=== PATIENT | female | born 1980 | race Caucasian/White ===

== ENCOUNTER → 2019-01-21 | Outpatient (CLI) | payer SELFPAY ==
[~2019-01-21] MED LIST: DOXY-233 PO; HOLD METFORMIN - RECEIVED CONTRAST 20 ML VIAL IV SCH; HYDR-690 PO; IOHEXOL 350 MG/ML 100 ML (OMNIPAQUE 350) VIAL IV ONE; METR500T PO; ONDN4T PO; SULF1TAB38 PO
--- NOTE | 2019-01-21 11:09 | Diagnostic Imaging Report ---
PROCEDURE: CT abdomen and pelvis with contrast. TECHNIQUE: Multiple contiguous axial images were obtained through the abdomen and pelvis after administration of intravenous contrast. Auto Exposure Controls were utilized during the CT exam to meet ALARA standards for radiation dose reduction. INDICATION: Lower abdominal pain and weight gain. No prior studies are available for comparison. FINDINGS: The lung bases are clear. There is a tiny low density in the left lobe of liver measuring 5 mm. This is too small to accurately characterize but may represent small cyst. Additional small lesion in the inferior right lobe is noted measuring 10 mm. This too likely represents a cyst. There appears to be large stones within the gallbladder. No biliary ductal dilatation is seen. The pancreas and spleen are unremarkable. No adrenal mass is identified. The kidneys are unremarkable. The aorta is non-aneurysmal. The small and large bowel loops are normal caliber. There is a cyst in the left adnexa measuring 3 cm, likely ovarian. The uterus appears to be surgically absent. No free fluid is identified. The bladder is unremarkable. IMPRESSION: 1. Cholelithiasis. Further evaluation with gallbladder ultrasound may be useful. 2. 3 cm left adnexal mass, likely ovarian. Pelvic sonography would be useful for better characterization. 3. Otherwise unremarkable CT of the abdomen and pelvis. Dictated by: Dictated on workstation # [id number]
== END ==
LOC: RAD 10:27
PROVIDERS: ATTEND Nurse Practitioner
DX: K80.20 Calculus of gallbladder without cholecystitis without obstruction (principal); N83.8 Other noninflammatory disorders of ovary, fallopian tube and broad ligament
CPT/HCPCS: 74177

== ENCOUNTER 2019-02-04 05:55 | Outpatient (CLI) | payer OTHER ==
[~2019-02-04] VITALS: Ht 152.4 cm; Wt 51.3 kg
[~2019-02-04 05:55] MED LIST changes: -HOLD METFORMIN - RECEIVED CONTRAST 20 ML VIAL IV SCH; -IOHEXOL 350 MG/ML 100 ML (OMNIPAQUE 350) VIAL IV ONE
[2019-02-04] MEDS ORDERED: SERT50TA2 PO (13:21)
[2019-02-04] MEDS ORDERED: ZOLP5TAB PO (13:21)
[2019-02-05] MEDS ORDERED: DOCU-143 PO (10:27)
[2019-02-05] MEDS ORDERED: ACHD5005 PO (10:27)
== END 2019-02-04 14:04 | disposition home or self-care (01) ==
LOC: PREOP 05:55
PROVIDERS: ATTEND Surgery
DX: Z01.818 Encounter for other preprocedural examination (principal)

== ENCOUNTER 2019-02-05 07:08 | Day surgery (SDC) | payer OTHER ==
[~2019-02-05] VITALS: Ht 152.4 cm; Wt 51.3 kg
[2019-02-05] VITALS (9 sets, daily range): BP systolic 94–100; BP diastolic 49–62
[~2019-02-05 07:08] MED LIST changes: +SERT50TA2 PO; +ZOLP5TAB PO
--- OUTSIDE RECORDS SUMMARY | 2019-02-05 07:12 | XMS REPORT ---
Author Author KARL GRIFFITH [facility] Address [address] [place], [place] [address] Care Team Providers Care Legal Document Specialist Name Role Phone KARL GRIFFITH PCP KARL GRIFFITH PreferredProvider Allergies and Adverse Reactions Name Reaction Notes No known allergies Plan of Treatment Not available. Medications Active Name Start Date Estimated Completion Date SIG Comments buspirone 5 mg oral tablet take 1 tablet by oral route As needed Zoloft 50 mg oral tablet 10/07/2017 take 2 tablets (100 mg) by oral route once daily Xanax 0.5 mg oral tablet 10/07/2017 11/06/2017 take 1 tablet (0.5 mg) by oral route 2 times per day for 30 days Name Start Date Expiration Date SIG Comments [place] 5-325 mg oral tablet 02/17/2017 take 1 tablet by oral route every 4- 6 hours as needed for pain Discontinued Name Start Date Discontinued Date SIG Comments citalopram 20 mg oral tablet 08/21/2017 10/08/2017 take 1 tablet (20 mg) by oral route once daily Problem List Description Status Onset Mild episode of recurrent major depressive disorder Active 10/08/2017 Stress at home Active 10/08/2017 Anxiety Active 10/08/2017 Vital Signs Date Time BP-Sys(mm[Hg] BP-Nora(mm[Hg]) HR(bpm) RR(rpm) Temp WT HT HC BMI BSA BMI Percentile O2 Sat(%) 10/06/2017 3:22:00 PM 96 mmHg 52 mmHg 86 bpm 16 rpm 98 F 127 lbs 61 in 24.00 kg/m2 1.57 m2 98 % 03/27/2017 10:36:00 AM 110 mmHg 80 mmHg 70 bpm 16 rpm 97.1 F 126 lbs 60 in 24.6074 kg/m 1.5555 m 97 % 02/24/2017 9:21:00 AM 102 mmHg 64 mmHg 82 bpm 18 rpm 98.4 F 126 lbs 60 in 24.61 kg/m2 1.56 m2 99 % 02/17/2017 4:02:00 PM 128 mmHg 74 mmHg 72 bpm 18 rpm 98 F 126 lbs 60 in 24.6074 kg/m 1.5555 m 99 % 02/13/2017 5:55:00 PM 100 mmHg 60 mmHg 88 bpm 97.9 F 125 lbs 60 in 24.41 kg/m2 1.55 m2 100 % 10/01/2016 11:26:00 AM 98 mmHg 60 mmHg 72 bpm 16 rpm 98.2 F 117 lbs 60 in 22.8498 kg/m 1.4989 m 100 % Social History Name Description Comments Tobacco Current every day smoker Alcohol Never Uses seatbelts History of Procedures Date Ordered Description Order Status 10/01/2016 12:00 AM PMRV Drug Screen Collection Returned 02/17/2017 12:00 AM Splint, prefabricated, wrist or ankle Reviewed 02/13/2017 12:00 AM X-RAY EXAM OF HAND Reviewed Results Summary Not available. History Of Immunizations Not available. History of Past Illness Name Date of Onset Comments Constipation Depression Mild episode of recurrent major depressive disorder 10/08/2017 Stress at home 10/08/2017 Anxiety 10/08/2017 Encounter for drug screening Oct 01 2016 1:05PM Encounter for routine adult health examination Oct 01 2016 11:26AM Left hand pain Feb 13 2017 6:00PM Finger pain, left Feb 17 2017 4:03PM Hand pain, left Feb 17 2017 4:03PM Acute Left hand pain Feb 24 2017 9:22AM Moderate Hand pain, left Unresponsive to treatment Mar 27 2017 10:36AM Mild episode of recurrent major depressive disorder Oct 06 2017 3:22PM Moderate Chronic Stress at home Oct 06 2017 3:22PM Moderate Chronic Anxiety Stable Oct 06 2017 3:22PM Payers Insurance Name Company Name Plan Name Plan Number Policy Number Policy Group Number Start Date [employer] [facility] [place] [id number] Sunday, 2013 [facility] PMRV PHYS/DS PMRV PHYS AND DS N/A History of Encounters Visit Date Visit Type Provider 10/06/2017 Office visit KARL ARANGO 03/27/2017 Office visit KARL ARANGO 02/24/2017 Office visit KARL ARANGO 02/17/2017 Office visit KARL ARANGO 02/13/2017 Office visit Radhika German APRN 10/01/2016 Office visit KARL ARANGO
--- OUTSIDE RECORDS SUMMARY | 2019-02-05 07:12 | XMS REPORT ---
Author Author KARL GRIFFITH [facility] Address [address] [place], [place] [address] Care Team Providers Care Offset Press Operator Helper Name Role Phone KARL GRIFFITH PCP KARL GRIFFITH PreferredProvider Allergies and Adverse Reactions Name Reaction Notes No known allergies Plan of Treatment Not available. Medications Active Name Start Date Estimated Completion Date SIG Comments buspirone 5 mg oral tablet take 1 tablet by oral route As needed Xanax 0.5 mg oral tablet 11/21/2017 05/20/2018 take 1 tablet (0.5 mg) by oral route 2 times per day for 30 days Ventolin HFA 90 mcg/actuation inhalation HFA aerosol inhaler 02/24/2018 inhale 1 - 2 puffs (90 - 180 mcg) by inhalation route every 6 hours as needed Name Start Date Expiration Date SIG Comments [place] 5-325 mg oral tablet 02/17/2017 take 1 tablet by oral route every 4- 6 hours as needed for pain Keflex 500 mg oral capsule 12/15/2017 take 1 capsule (500 mg) by oral route every 6 hours for 7 days Zithromax Z-Louie 250 mg oral tablet 02/24/2018 03/01/2018 take 2 tablets (500 mg) by oral route once daily for 1 day then 1 tablet (250 mg) by oral route once daily for 4 days Medrol (Louie) 4 mg oral tablets,dose pack 02/24/2018 03/01/2018 take as directed for 5 days Discontinued Name Start Date Discontinued Date SIG Comments citalopram 20 mg oral tablet 08/21/2017 10/08/2017 take 1 tablet (20 mg) by oral route once daily Zoloft 50 mg oral tablet 11/21/2017 03/09/2018 take 2 tablets (100 mg) by oral route once daily Problem List Description Status Onset Mild episode of recurrent major depressive disorder Active 10/08/2017 Stress at home Active 10/08/2017 Anxiety Active 10/08/2017 Vital Signs Date Time BP-Sys(mm[Hg] BP-Nora(mm[Hg]) HR(bpm) RR(rpm) Temp WT HT HC BMI BSA BMI Percentile O2 Sat(%) 05/19/2018 1:47:00 PM 112 mmHg 70 mmHg 70 bpm 16 rpm 97.4 F 124 lbs 60 in 24.2168 kg/m 1.5431 m 98 % 02/24/2018 3:23:00 PM 98 mmHg 52 mmHg 80 bpm 18 rpm 99.3 F 127 lbs 60 in 24.80 kg/m2 1.56 m2 99 % 10/06/2017 3:22:00 PM 96 mmHg 52 mmHg 86 bpm 16 rpm 98 F 127 lbs 61 in 23.9962 kg/m 1.5746 m 98 % 03/27/2017 10:36:00 AM 110 mmHg 80 mmHg 70 bpm 16 rpm 97.1 F 126 lbs 60 in 24.61 kg/m2 1.56 m2 97 % 02/24/2017 9:21:00 AM 102 mmHg 64 mmHg 82 bpm 18 rpm 98.4 F 126 lbs 60 in 24.6074 kg/m 1.5555 m 99 % 02/17/2017 4:02:00 PM 128 mmHg 74 mmHg 72 bpm 18 rpm 98 F 126 lbs 60 in 24.61 kg/m2 1.56 m2 99 % 02/13/2017 5:55:00 PM 100 mmHg 60 mmHg 88 bpm 97.9 F 125 lbs 60 in 24.4121 kg/m 1.5493 m 100 % 10/01/2016 11:26:00 AM 98 mmHg 60 mmHg 72 bpm 16 rpm 98.2 F 117 lbs 60 in 22.8498 kg/m 1.50 m2 100 % Social History Name Description Comments [...] Chronic Anxiety Stable Oct 06 2017 3:22PM Cough Feb 24 2018 3:24PM Bronchitis, Acute Feb 24 2018 3:24PM Chest congestion Feb 24 2018 3:24PM Smoker Feb 24 2018 3:24PM Gallstones May 19 2018 1:55PM Renal calculus or stone May 19 2018 1:55PM Encounter for examination following treatment at hospital May 19 2018 1:55PM Payers Insurance Name Company Name Plan Name Plan Number Policy Number Policy Group Number Start Date [employer]BS [facility] [id number] Sunday, 2013 [facility] PMRV PHYS/DS PMRV PHYS AND DS N/A History of Encounters Visit Date Visit Type Provider 05/19/2018 Office visit KARL ARANGO 02/24/2018 Office visit KARL ARANGO 10/06/2017 Office visit KARL ARANGO 03/27/2017 Office visit KARL ARANGO 02/24/2017 Office visit KARL ARANGO 02/17/2017 Office visit KARL ARANGO 02/13/2017 Office visit Radhika German APRN 10/01/2016 Office visit KARL ARANGO
--- OUTSIDE RECORDS SUMMARY | 2019-02-05 07:12 | XMS REPORT ---
Author KARL Miguel [facility] Address [address] [place], [place] [address] Care Team Providers Care Glaze Grinder Name Role Phone KARL GRIFFITH PCP Unavailable KARL GRIFFITH PreferredProvider Unavailable Allergies and Adverse Reactions Name Reaction Notes No known allergies Plan of Treatment Not available. Medications Active Name Start Date Estimated Completion Date SIG Comments Xanax 0.25 mg oral tablet buspirone 5 mg oral tablet take 1 tablet by oral route As needed [place] 5-325 mg oral tablet 02/17/2017 take 1 tablet by oral route every 4- 6 hours as needed for pain citalopram 20 mg oral tablet 02/24/2017 take 1 tablet (20 mg) by oral route once daily Problem List Not available. Vital Signs Date Time BP-Sys(mm[Hg] BP-Nora(mm[Hg]) HR(bpm) RR(rpm) Temp WT HT HC BMI BSA BMI Percentile O2 Sat(%) 02/24/2017 9:21:00 AM 102 mmHg 64 mmHg [...] 12:00 AM PMRV Drug Screen Collection Returned 02/13/2017 12:00 AM X-RAY EXAM OF HAND Reviewed 02/17/2017 12:00 AM Splint, prefabricated, wrist or ankle Reviewed Results Summary Not available. History Of Immunizations Not available. History of Past Illness Name Date of Onset Comments Constipation Depression Encounter for drug screening Oct 01 2016 1:05PM Encounter for routine adult health examination Oct 01 2016 11:26AM Left hand pain Feb 13 2017 6:00PM Finger pain, left Feb 17 2017 4:03PM Hand pain, left Feb 17 2017 4:03PM Acute Left hand pain Feb 24 2017 9:22AM Payers Insurance Name Company Name Plan Name Plan Number Policy Number Policy Group Number Start Date [facility] [id number] Sunday, 2013 [facility] PMRV PHYS/DS PMRV PHYS AND DS N/A History of Encounters Visit Date Visit Type Provider 02/24/2017 Office visit KARL ARANGO 02/17/2017 Office visit KARL ARANGO 02/13/2017 Office visit Radhika German APRN 10/01/2016 Office visit KARL ARANGO
--- OUTSIDE RECORDS SUMMARY | 2019-02-05 07:12 | XMS REPORT ---
Author Author KARL GRIFFITH [facility] Address [address] [place], [place] [address] Care Team Providers Care Tariff Compiling Clerk Name Role Phone KARL GRIFFITH PCP KARL GRIFFITH PreferredProvider Allergies and Adverse Reactions Name Reaction Notes No known allergies Plan of Treatment Not available. Medications Active Name Start Date Estimated Completion Date SIG Comments buspirone 5 mg oral tablet take 1 tablet by oral route As needed Ventolin HFA 90 mcg/actuation inhalation HFA aerosol inhaler 02/24/2018 inhale 1 - 2 puffs (90 - 180 mcg) by inhalation route every 6 hours as needed Xanax 0.5 mg oral tablet 07/09/2018 01/05/2019 take 1 tablet (0.5 mg) by oral route 2 times per day for 30 days Name Start Date Expiration Date SIG Comments [place] 5-325 mg oral tablet 02/17/2017 take 1 [...] route once daily for 4 days Medrol (Louei) 4 mg oral tablets,dose pack 02/24/2018 03/01/2018 [...] HC BMI BSA BMI Percentile O2 Sat(%) 09/15/2018 9:28:00 AM 102 mmHg 60 mmHg 90 bpm 18 rpm 98.4 F 128 lbs 60 in 24.998 kg/m 1.5678 m 98 % 05/19/2018 1:47:00 PM 112 mmHg 70 mmHg 70 bpm 16 rpm 97.4 F 124 lbs 60 in 24.22 kg/m2 1.54 m2 98 % 02/24/2018 3:23:00 PM 98 mmHg 52 mmHg 80 bpm 18 rpm 99.3 F 127 lbs 60 in 24.8027 kg/m 1.5616 m 99 % 10/06/2017 3:22:00 PM 96 mmHg [...] treatment at hospital May 19 2018 1:55PM Insomnia, unspecified type Sep 15 2018 9:29AM Moderate episode of recurrent major depressive disorder Sep 15 2018 9:29AM Anxiety Sep 15 2018 9:29AM Payers Insurance Name Company Name Plan Name Plan Number Policy Number Policy Group Number Start Date [facility] [id number] Sunday, 2013 [facility] PMRV PHYS/DS PMRV PHYS AND DS N/A History of Encounters Visit Date Visit Type Provider 09/15/2018 Office visit KARL ARANGO 05/19/2018 Office visit KARL ARANGO 02/24/2018 Office visit KARL ARANGO 10/06/2017 Office visit KARL ARANGO 03/27/2017 Office visit KARL ARANGO 02/24/2017 Office visit KARL ARANGO 02/17/2017 Office visit KARL ARANGO 02/13/2017 Office visit Radhika German APRN 10/01/2016 Office visit KARL ARANGO
--- OUTSIDE RECORDS SUMMARY | 2019-02-05 07:12 | XMS REPORT ---
Author KARL Miguel [facility] Address [address] [place], [place] [address] Care Team Providers Care Marketing Assistant Name Role Phone KARL GRIFFITH PCP Unavailable KARL GRIFFITH PreferredProvider Unavailable Allergies and Adverse Reactions Name Reaction Notes No known allergies Plan of Treatment Not available. Medications Active Name Start Date Estimated Completion Date SIG Comments citalopram oral Xanax 0.25 mg oral tablet buspirone 5 mg oral tablet take 1 tablet by oral route As needed [place] 5-325 mg oral tablet 02/17/2017 take 1 tablet by oral route every 4- 6 hours as needed for pain Problem List Not available. Vital Signs Date Time BP-Sys(mm[Hg] BP-Nora(mm[Hg]) HR(bpm) RR(rpm) Temp WT HT HC BMI BSA BMI Percentile O2 Sat(%) 02/17/2017 4:02:00 PM 128 mmHg 74 mmHg 72 bpm 18 rpm 98 F 126 lbs 60 in 24.61 kg/m2 1.56 m2 99 % 02/13/2017 5:55:00 PM 100 mmHg 60 mmHg 88 bpm 97.9 F 125 lbs 60 in 24.4121 kg/m 1.5493 m 100 % 10/01/2016 11:26:00 AM 98 mmHg 60 mmHg 72 bpm 16 rpm 98.2 F 117 lbs 60 in 22.85 kg/m2 1.50 m2 100 % Social History Name [...] Feb 13 2017 6:00PM Finger pain, left Apr 17 2017 4:03PM Hand pain, left Feb 17 2017 4:03PM Payers Insurance Name Company Name Plan Name Plan Number Policy Number Policy Group Number Start Date [employer] [facility] [place] [id number] Sunday, 2013 [facility] PMRV PHYS/DS PMRV PHYS AND DS N/A History of Encounters Visit Date Visit Type Provider 02/17/2017 Office visit KARL ARANGO 02/13/2017 Office visit Radhika German APRN 10/01/2016 Office visit KARL ARANGO
--- OUTSIDE RECORDS SUMMARY | 2019-02-05 07:12 | XMS REPORT ---
Author KARL Miguel [facility] Address [address] [place], [place] [address] Care Team Providers Care Link Wire Fabric Machine Operator Name Role Phone KARL GRIFFITH PCP Unavailable KARL GRIFFITH PreferredProvider Unavailable Allergies and Adverse Reactions Name Reaction Notes No known allergies Plan of Treatment Not available. Medications Active Name Start Date Estimated Completion Date SIG Comments Xanax 0.25 mg oral tablet buspirone 5 mg oral tablet take 1 tablet by oral route As needed [place] 5-325 mg oral tablet 02/17/2017 take 1 tablet by oral route every 4- 6 hours as needed for pain citalopram 20 mg oral tablet 03/05/2017 take 1 tablet (20 mg) by oral route once daily Problem List Not available. Vital Signs Date Time BP-Sys(mm[Hg] BP-Nora(mm[Hg]) HR(bpm) RR(rpm) Temp WT HT HC BMI BSA BMI Percentile O2 Sat(%) 03/27/2017 10:36:00 AM 110 mmHg 80 mmHg [...] Unresponsive to treatment Mar 27 2017 10:36AM Payers Insurance Name Company Name Plan Name Plan Number Policy Number Policy Group Number Start Date [facility]BS [facility] [id number] Sunday, November 03, 2013 [facility] PMRV PHYS/DS PMRV PHYS AND DS N/A History of Encounters Visit Date Visit Type Provider 03/27/2017 Office visit KARL ARANGO 02/24/2017 Office visit KARL ARANGO 02/17/2017 Office visit KARL ARANGO 02/13/2017 Office visit Radhika German APRN 10/01/2016 Office visit KARL ARANGO
--- OUTSIDE RECORDS SUMMARY | 2019-02-05 07:13 | XMS REPORT ---
Author Author KARL GRIFFITH [facility] Address [address] [place], [place] [address] Care Team Providers Care Gang Head Saw Operator Name Role Phone KARL GRIFFITH PCP KARL [...] Name Start Date Expiration Date SIG Comments [place] 5-325 mg oral tablet 02/17/2017 take 1 [...] HC BMI BSA BMI Percentile O2 Sat(%) 02/24/2018 3:23:00 PM 98 mmHg 52 mmHg [...] 2018 3:24PM Smoker Feb 24 2018 3:24PM Payers Insurance Name Company Name Plan Name Plan Number Policy Number Policy Group Number Start Date [facility] PMRV PHYS/DS PMRV PHYS AND DS N/A BCBS [employer] [facility] [id number] Sunday, 2013 History of Encounters Visit Date Visit Type Provider 02/24/2018 Office visit KARL ARANGO 10/06/2017 Office visit KARL ARANGO 03/27/2017 Office visit KARL ARANGO 02/24/2017 Office visit KARL ARANGO 02/17/2017 Office visit KARL ARANGO 02/13/2017 Office visit Radhika German APRN 10/01/2016 Office visit KARL ARANGO
--- OUTSIDE RECORDS SUMMARY | 2019-02-05 07:13 | XMS REPORT ---
Author Author GUILLAUME CAREY Organization [facility] Address [address] [place] [address] Care Team Providers Care Bead Picker Name Role Phone GUILLAUME CAREY Unavailable PROBLEMS Type Condition ICD9-CM Code [id number] Code Onset Dates Condition Status SNOMED Code Problem Migraine, unspecified without mention of intractable migraine without mention of status migrainosus 346.90 Active 15911472 Problem Cellulitis and abscess of unspecified site 682.9 Active 723815995 Problem Encounter for change or removal of nonsurgical wound dressing V58.30 Active 978053500 ALLERGIES No Information ENCOUNTERS Encounter Location Date Diagnosis [facility] [address] [address] Feb, [facility] [address] [place] [address] Jul, [address] [address] Apr, Tobacco use Z72.0 and Tobacco abuse counseling Z71.[address] [address] Jun, Anxiety 300.00 and Sinusitis [address] [address] May, Anxiety 300.00 and Nicotine addiction 305.[address] [address] Apr, Anxiety 300.00 ; Insomnia 780.52 ; Nicotine addiction 305.1 and External auditory canal pruritus 698.[address] [address] March, External auditory canal pruritus 698.9 [facility] [address] [facility] [id number] [address] Feb, [facility] [id number] [address] Feb, [facility] [id number] [address] Jul, [facility] [id number] [address] Jul, [facility] [address] [id number] [address] Apr, [facility] [id number] [address] Apr, [facility] [id number] [address] Apr, IMMUNIZATIONS No Known Immunizations SOCIAL HISTORY Never Assessed REASON FOR VISIT Triage [facility] PLAN OF CARE VITAL SIGNS Height 60 in 2018-02-23 Weight 123.0 lbs 2018-02-23 Temperature 98.7 degrees Fahrenheit 2018-02-23 Heart Rate 84 bpm 2018-02-23 Respiratory Rate 20 2018-02-23 BMI 24.02 kg/m2 2018-02-23 Blood pressure systolic 100 mmHg 2018-02-23 Blood pressure diastolic 70 mmHg 2018-02-23 MEDICATIONS Unknown Medications RESULTS No Results PROCEDURES No Known procedures INSTRUCTIONS MEDICATIONS ADMINISTERED No Known Medications MEDICAL (GENERAL) HISTORY Type Description Date Medical History anxiety Surgical History hysterectomy Surgical History tubal ligation Surgical History dilatation and curettage Hospitalization History no other hospitalizations except surgeries
--- OUTSIDE RECORDS SUMMARY | 2019-02-05 07:13 | XMS REPORT ---
Author KARL Miguel [facility] Address [address] [place], [place] [address] Care Team Providers Care Building Construction Superintendent Name Role Phone KARL GRIFFITH PCP Unavailable Allergies and Adverse Reactions Name Reaction Notes No known allergies Plan of Treatment Not available. Medications Active Name Start Date Estimated Completion Date SIG Comments citalopram oral Xanax 0.25 mg oral tablet Problem List Not available. Vital Signs Date Time BP-Sys(mm[Hg] BP-Nora(mm[Hg]) HR(bpm) RR(rpm) Temp WT HT HC BMI BSA BMI Percentile O2 Sat(%) 10/01/2016 11:26:00 AM 98 mmHg 60 mmHg 72 bpm 16 rpm 98.2 F 117 lbs 60 in 22.85 kg/m2 1.50 m2 100 % Social History Name Description Comments Tobacco Current every day smoker Alcohol Never Uses seatbelts History of Procedures Not available. Results Summary Not available. History Of Immunizations Not available. History of Past Illness Name Date of Onset Comments Constipation Depression Encounter for drug screening Oct 01 2016 1:05PM Payers Insurance Name Company Name Plan Name Plan Number Policy Number Policy Group Number Start Date [facility] PMRV PHYS/DS PMRV PHYS AND DS N/A History of Encounters Visit Date Visit Type Provider 10/01/2016 Office visit KARL ARANGO
--- OUTSIDE RECORDS SUMMARY | 2019-02-05 07:13 | XMS REPORT ---
Author KARL Miguel [facility] Address [address] [place], [place] [address] Care Team Providers Care Expanded Function Dental Assistant Name Role Phone KARL GRIFFITH PCP [...] 12:00 AM PMRV Drug Screen Collection Returned Results Summary Not available. History Of Immunizations Not available. History of Past Illness Name Date of Onset Comments Constipation Depression Encounter for drug screening Oct 01 2016 1:05PM Encounter for routine adult health examination Oct 01 2016 11:26AM Payers Insurance Name Company Name Plan Name Plan Number Policy Number Policy Group Number Start Date [facility] PMRV PHYS/DS PMRV PHYS AND DS N/A History of Encounters Visit Date Visit Type Provider 10/01/2016 Office visit KARL ARANGO
--- OUTSIDE RECORDS SUMMARY | 2019-02-05 07:13 | XMS REPORT | Continuity of Care Document ---
Author Author [facility] Address Unknown Phone Unavailable Allergies There is no data. Medications There is no data. Problems Date Dx Coded Attending Type Code Diagnosis Diagnosed By 01/03/2009 NEELAM LOMELI MD 616.10 BACTERIAL VAGINOSIS 01/03/2009 NEELAM LOMELI MD 625.0 FEMALE DYSPAREUNIA DUE TO A PHYSICAL CONDITION 01/03/2009 NEELAM LOMELI MD V72.31 Pelvic Exam (Internal) 01/03/2009 KAYLAH TRAVIS DO 616.10 BACTERIAL VAGINOSIS 01/03/2009 KAYLAH TRAVIS DO 625.0 FEMALE DYSPAREUNIA DUE TO A PHYSICAL CONDITION 01/03/2009 KAYLAH TRAVIS DO V72.31 Pelvic Exam (Internal) 04/28/2012 NEELAM LOMELI MD 682.9 CELLULITIS AND ABSCESS OF UNSPECIFIED SITES 04/28/2012 NEELAM LOMELI MD V58.30 ENCOUNTER FOR CHANGE OR REMOVAL OF NONSURGICAL WOUND DRESSING 04/28/2012 KAYLAH TRAVIS DO 682.9 CELLULITIS AND ABSCESS OF UNSPECIFIED SITES 04/28/2012 KAYLAH TRAVIS DO V58.30 ENCOUNTER FOR CHANGE OR REMOVAL OF NONSURGICAL WOUND DRESSING 07/28/2014 NEELAM LOMELI MD 346.90 MIGRAINE UNSPECIFIED WITHOUT MENTION OF INTRACTABLE MIGRAINE WITHOUT MENTION OF STATUS MIGRAINOSUS 07/28/2014 KAYLAH TRAVIS DO 346.90 MIGRAINE UNSPECIFIED WITHOUT MENTION OF INTRACTABLE MIGRAINE WITHOUT MENTION OF STATUS MIGRAINOSUS 02/17/2015 KAYLAH TRAVIS DO 780.52 INSOMNIA UNSPECIFIED 02/17/2015 KAYLAH TRAVIS DO V58.69 HIGH RISK MEDICATION Procedures There is no data. Results There is no data. Encounters ACCT No. Visit Date/Time Discharge Status Pt. Type Provider Facility Loc./Unit Complaint [id number] 09/15/2018 10:22:28 09/15/2018 23:59:59 [facility] Outpatient KARL GRIFFITH [id number] 05/19/2018 14:53:31 05/19/2018 23:59:59 [facility] Outpatient KARL GRIFFITH [id number] 02/24/2018 15:41:12 02/24/2018 23:59:59 [facility] Outpatient KARL GRIFFITH [id number] 10/06/2017 15:32:48 10/06/2017 23:59:59 [facility] Outpatient KARL GRIFFITH [id number] 03/27/2017 10:39:38 03/27/2017 23:59:59 [facility] Outpatient KARL GRIFFITH [id number] 02/24/2017 09:54:29 02/24/2017 23:59:59 [facility] Outpatient KARL GRIFFITH [id number] 02/17/2017 15:39:29 02/17/2017 23:59:59 [facility] Outpatient KARL GRIFFITH [id number] 02/17/2017 15:35:26 02/17/2017 23:59:59 [facility] Outpatient Radhika German [id number] 10/01/2016 12:03:49 10/01/2016 23:59:59 [facility] Outpatient KARL GRIFFITH [id number] 01/27/2019 14:45:00 01/27/2019 23:59:59 [facility] Outpatient GUILLAUME CAREY APRN [facility] [id number] 02/17/2015 09:37:00 02/17/2015 23:59:59 CLS Outpatient KAYLAH TRAVIS DO [id number] 07/28/2014 15:57:00 07/28/2014 23:59:59 [facility] Outpatient NEELAM LOMELI MD
--- OUTSIDE RECORDS SUMMARY | 2019-02-05 07:13 | XMS REPORT ---
Author Author GUILLAUME CAREY Organization [employer] Address Unknown Phone Unavailable Care Team Providers Care Antique Refinisher Name Role Phone GUILLAUME CAREY CP Unavailable Allergies, Adverse Reactions, Alerts Substance Reaction Event Type N.K.D.A. Info Not Available Non Drug Allergy Problems Problem Type Condition ICD-9 Code Onset Dates Condition Status Problem Encounter for change or removal of nonsurgical wound dressing V58.30 Active Problem Cellulitis and abscess of unspecified site 682.9 Active Problem Migraine, unspecified without mention of intractable migraine without mention of status migrainosus 346.90 Active Assessment Anxiety 300.00 Active Assessment Sinusitis 473.9 Active Medications Medication Code System Code Instructions Start Date End Date Status Dosage Augmentin [facility] [address]-83 875-125 MG Orally every [address] [facility] [address]-47 0.25 MG Orally Once a day April 11, 2015 1 tablet Procedures Procedure Coding System Code Date Office Visit, Est Pt., Level 3 CPT-4 53123 Jun 28, 2015 Vital Signs Date/Time: Jun 28, 2015 Temperature 97.6 F Weight 119.6 lbs Height 60 in BMI 23.36 Index Blood Pressure Diastolic 68 mmHg Blood Pressure Systolic 102 mmHg Cardiac Monitoring Heart Rate 88 bpm Results No Known Results Summary Purpose [employer] Submission
--- OUTSIDE RECORDS SUMMARY | 2019-02-05 07:13 | XMS REPORT ---
Author Author Migration, Doctor Organization [facility] Address Unknown Phone Unavailable Care Team Providers Care Parts Sales Counterperson Name Role Phone Migration, Doctor Unavailable Unavailable PROBLEMS Type Condition ICD9-CM Code [id number] Code Onset Dates Condition Status SNOMED Code Problem Anxiety disorder, unspecified F41.9 Active 609070919 Problem Adnexal mass N94.9 Active 145787954 Problem Moderate episode of recurrent major depressive disorder F33.1 Active 154855052 Problem Insomnia, unspecified G47.00 Active 459326747 ALLERGIES No Information ENCOUNTERS Encounter Location Date Diagnosis [address] [address] Jan, Left ovarian cyst N83.202 [facility] [place] [id number] [place] [address] Jan, Adnexal mass N94.9 [facility] [address] [place] [address] Jan, Adnexal mass N94.9 [facility] [address] [place] [address] Jan, Generalized abdominal pain R10.84 ; Anxiety disorder, unspecified F41.9 ; Insomnia, unspecified G47.00 and Moderate episode of recurrent major depressive disorder F33.1 [facility] [place] [address] [place] [address] Jan, Generalized abdominal pain R10.84 [facility] [address] [address] Feb, [facility] [place] [id number] [place] [address] 14 Jul, 2016 [facility] [place] [address] [place] [address] 16 Apr, 2016 Tobacco use Z72.0 and Tobacco abuse counseling Z71.6 [place] [id number] [place] [address] Jun, Anxiety 300.00 and Sinusitis 473.9 [place] [id number] [place] [address] May, Anxiety 300.00 and Nicotine addiction 305.1 [place] [address] [address] Apr, Anxiety 300.00 ; Insomnia 780.52 ; Nicotine addiction 305.1 and External auditory canal pruritus 698.9 [place] [id number] [place] [address] March, External auditory canal pruritus 698.9 [place] [id number] [place] [address] Feb, [place] [address] [address] Feb, [place] [id number] [place] [address] Jul, [place] [address] [address] Jul[address] [place] [id number] [place] [address] Apr, [place] [id number] [place] [address] Apr, [place] [id number] [place] [address] Apr, IMMUNIZATIONS No Known Immunizations SOCIAL HISTORY Never Assessed REASON FOR VISIT EMR-[facility] PLAN OF CARE VITAL SIGNS MEDICATIONS Medication Instructions Dosage Frequency Start Date End Date Duration Status Imitrex 50 mg 1 tablet by Oral route 2 times per day PRN 1 at onset March repeat in 2 hr.Limit 2/24 hr or 5/wk Jul, Active Phenergan 25 mg 1 tablet by Oral route every 6 hours PRN nausea Jul Active RESULTS No Results PROCEDURES No Known procedures INSTRUCTIONS MEDICATIONS ADMINISTERED No Known Medications MEDICAL (GENERAL) HISTORY Type Description Date Medical History anxiety Surgical History hysterectomy 2013 Surgical History tubal ligation Surgical History dilatation and curettage Hospitalization History no other hospitalizations except surgeries
--- OUTSIDE RECORDS SUMMARY | 2019-02-05 07:13 | XMS REPORT ---
Author KARL Miguel [facility] Address [address] [place], [place] [id number] Care Team Providers Care Freight Brakeman Name Role Phone KARL GRIFFITH PCP Unavailable KARL GRIFFITH PreferredProvider Unavailable Allergies and Adverse Reactions Name Reaction Notes No known allergies Plan of Treatment Not available. Medications Active Name Start Date Estimated Completion Date SIG Comments Xanax 0.25 mg oral tablet buspirone 5 mg oral tablet take 1 tablet by oral route As needed [place] 5-325 mg oral tablet 02/17/2017 take 1 [...] Number Policy Group Number Start Date [facility] [id number] Sunday, 2013 [facility] PMRV PHYS/DS PMRV PHYS AND DS N/A History of Encounters Visit Date Visit Type Provider 02/24/2017 Office visit KARL ARANGO 02/17/2017 Office visit KARL ARANGO 02/13/2017 Office visit Radhika German APRN 10/01/2016 Office visit KARL ARANGO
--- OUTSIDE RECORDS SUMMARY | 2019-02-05 07:13 | XMS REPORT ---
Author KARL Miguel [facility] Address [address] [place], [place] [address] Care Team Providers Care Account Liaison Hospice Name Role Phone KARL GRIFFITH PCP Unavailable KARL GRIFFITH PreferredProvider Unavailable Allergies and Adverse Reactions Name Reaction Notes No known allergies Plan of Treatment Not available. Medications Active Name Start Date Estimated Completion Date SIG Comments citalopram oral Xanax 0.25 mg oral tablet buspirone 5 mg oral tablet take 1 tablet by oral route As needed [place] 5-325 mg oral tablet 02/17/2017 take 1 [...] Number Policy Group Number Start Date [id number] Sunday, 2013 [facility] PMRV PHYS/DS PMRV PHYS AND DS N/A History of Encounters Visit Date Visit Type Provider 02/24/2017 Office visit KARL ARAGNO 02/17/2017 Office visit KARL ARANGO 02/13/2017 Office visit Radhika German FISHER [facility]SEL 10/01/2016 Office visit KARL ARANGO
[2019-02-05] MEDS ORDERED: BUP/EPI 0.5% 1:200,000 (SENSORCAINE) 30 ML VIAL ONE (07:20)
[2019-02-05] MEDS ORDERED: LIDOCAINE 1% INJ 20 ML 20 ML VIAL ONE (07:21)
[2019-02-05] MEDS: LACTATED RINGERS 1,000 ML IV PRN ×3 (07:30→09:35)
[2019-02-05] MEDS ORDERED: proPOfol 200 MG/20 ML (DIPRIVAN) VIAL IV ONE (07:39)
[2019-02-05] MEDS ORDERED: LIDOCAINE PF 2% 5 ML (XYLOCAINE) VIAL ONE (07:39)
[2019-02-05] MEDS ORDERED: DEXAMETHASONE 10 MG/ML (DECADRON) 1 ML VIAL ONE (07:39)
[2019-02-05] MEDS ORDERED: SEVOFLURANE (ULTANE) 15 ML INHAL SOLN ONE ×2 (07:39→10:21)
[2019-02-05] MEDS ORDERED: fentaNYL INJECTION 100 MCG/2 ML AMP ONE ×3 (07:39→13:35)
[2019-02-05] MEDS ORDERED: ROCURONIUM 10 MG/ML 5 ML SYRINGE IV ONE (07:39)
[2019-02-05] MEDS ORDERED: MIDAZOLAM 2 MG/2 ML (VERSED) VIAL ONE (07:39)
[2019-02-05] MEDS ORDERED: ONDANSETRON 4 MG/2 ML (SDV) Z0FRAN ONE ×2 (07:39→14:38)
--- NOTE | 2019-02-05 07:48 | Progress Note-Pre Operative ---
Pre-Operative Progress Note H&P Reviewed The H&P was reviewed, patient examined and no changes noted. Date Seen by Provider: Feb 05, 2019 Time Seen by Provider: 07:47 Date H&P Reviewed: Feb 05, 2019 Time H&P Reviewed: 07:47 Pre-Operative Diagnosis: ruq abdominal pain, symptomatic cholelithiasis CHELITA KIRK DO Feb 05, 2019 07:47
[2019-02-05] MEDS ORDERED: ceFAZolin INJECTION 1,000 MG ONE (08:03)
[2019-02-05] MEDS ORDERED: WATER (STERILE) FOR INJECTION 10 ML ONE (08:03)
[2019-02-05] MEDS ORDERED: ceFAZolin INJECTION 1,000 MG in WATER (STERILE) FOR INJECTION 10 ML IV ONE (08:15)
[2019-02-05 08:20] LABS: BASOPHILS # (AUTO) 0.1 10^3/uL (0.0-0.1); BASOPHILS % (AUTO) 0 % (0-10); EOSINOPHILS # (AUTO) 0.1 10^3/uL (0.0-0.3); EOSINOPHILS % (AUTO) 1 % (0-10); HEMATOCRIT 41 % (35-52); HEMOGLOBIN 14.2 G/DL (11.5-16.0); LYMPHOCYTES # (AUTO) 3.9 X 10^3 (1.0-4.0); LYMPHOCYTES % (AUTO) 32 % (12-44); MEAN CORPUSCULAR HEMOGLOBIN 32 PG (25-34); MEAN CORPUSCULAR HGB CONC 34 G/DL (32-36); MEAN CORPUSCULAR VOLUME 94 FL (80-99); MEAN PLATELET VOLUME 11.5 FL (7.4-10.4); MONOCYTES # (AUTO) 0.8 X 10^3 (0.0-1.0); MONOCYTES % (AUTO) 6 % (0-12); NEUTROPHILS # (AUTO) 7.3 X 10^3 (1.8-7.8); NEUTROPHILS % (AUTO) 60 % (42-75); PLATELET COUNT 282 10^3/uL (130-400); RED CELL DISTRIBUTION WIDTH 12.7 % (10.0-14.5); WHITE BLOOD COUNT 12.2 10^3/uL (4.3-11.0)
[2019-02-05] MEDS ORDERED: NEOSTIGMINE 1 MG/ML 5 ML SYRINGE ONE (10:20)
[2019-02-05] MEDS ORDERED: GLYCOPYRROLATE 0.2 MG/ML (ROBINUL) 2 ML VIAL ONE (10:20)
[2019-02-05] MEDS ORDERED: PHENYLEPHRINE 100 MCG/ML 10 ML (ANESTHESIA) SYR ONE (10:21)
--- NOTE | 2019-02-05 10:25 | Progress Note-Post Operative ---
Post-Operative Progess Note Surgeon (s)/Shellfish Checker (s) Surgeon CHELITA KIRK DO Shellfish Checker: Dr. Stout Pre-Operative Diagnosis ruq abdominal pain, symptomatic cholelithiasis Post-Operative Diagnosis same Procedure & Operative Findings Date of Procedure 02/05/19 Procedure Performed/Findings lap devendra c ioc Anesthesia Type gen Estimated Blood Loss Estimated blood loss (mL): min Specimens/Packing Specimens Removed gallbladder CHELITA KIRK DO Feb 05, 2019 10:25
[2019-02-05] MEDS ORDERED: ACHD5005 PO (10:27)
[2019-02-05] MEDS ORDERED: DOCU-143 PO (10:27)
--- NOTE | 2019-02-05 10:29 | Discharge Inst-Simple/Standard ---
Discharge Inst-Standard Discharge Medications New, Converted or Re-Newed RX: RX on Chart Patient Instructions/Follow Up Plan of Care/Instructions/FU: 2 weeks [facility] Activity as Tolerated: No Discharge Diet: Regular Diet Other Inst to Patient Follow up Appt: Make appointment for 2 weeks. Instructions: No lifting greater than 10 pounds. No strenuous activity. May shower in 24 hours, no tub bath or soaking. Use incentive spirometer at home as directed. No Smoking Skin/Wound Care: You have special glue over incisions it will fall off on its own. Symptoms to Report: Appetite Changes, Extremity Discoloration, Numbness/Tingling, Swelling Increased , Bleeding Excessive, Eyesight Changes, Pain Increased, Urine Color Change, Constipation(Persistent), Fever over 101 degree F, Pain/Pressure in chest, Urinating Difficulty, Cough Up/Vomit Blood, Heart Beat Irreg/Pounding, Pain/ Pressure in jaw, Vaginal Bleeding Increase, Cramps in feet or legs, Lightheadedness, Pain/Pressure in shoulder, Diarrhea(Persistent), Memory Changes Suddenly, Questions/Concerns, Weight gain consecutive days, Dizziness/ Fainting, Nausea/Vomiting, Shortness of Breath, Weight gain over 2 pounds. If eyes or skin turn yellow notify physician. If questions or concerns contact your physician Or seek help at emergency department. CHELITA KIRK DO Feb 05, 2019 10:29
[2019-02-05] MEDS ORDERED: morphine INJ 10 MG/ML 1ML (SYR OR VIAL) IVP ONE (10:45)
[2019-02-05] MEDS ORDERED: ONDANSETRON 4 MG/2 ML (SDV) Z0FRAN IVP PRN (10:45)
[2019-02-05] MEDS ORDERED: IOPAMIDOL 61% 30 ML (ISOVUE 300) VIAL IV ONE (10:45)
[2019-02-05] MEDS ORDERED: morphine INJ 10 MG/ML 1ML (SYR OR VIAL) ONE (10:51)
[2019-02-05] MEDS ORDERED: HYDROmorphone 2 MG/ML VIAL (DILAUDID) ONE (11:09)
[2019-02-05] MEDS ORDERED: HYDROmorphone 2 MG/ML VIAL (DILAUDID) IV ONE (11:15)
[2019-02-05] MEDS ORDERED: HYDROcodone/APAP 5 MG/325 MG (LORTAB) TAB ONE (13:25)
[2019-02-05] MEDS ORDERED: HYDROcodone/APAP 5 MG/325 MG (LORTAB) TAB PO ONE (13:30)
[2019-02-05] MEDS ORDERED: fentaNYL INJECTION 100 MCG/2 ML AMP IVP ONE (13:45)
--- NOTE | 2019-02-05 14:25 | Anesthesia-General Post-Op ---
General Patient Condition Mental Status/LOC: Same as Preop Cardiovascular: Satisfactory Nausea/Vomiting: Absent Respiratory: Satisfactory Pain: Controlled Complications: Absent Post Op Complications Complications None Follow Up Care/Instructions Patient Instructions None needed. Anesthesia/Patient Condition Patient Condition Patient is doing well, no complaints, stable vital signs, no apparent adverse anesthesia problems. No complications reported per nursing. RENEE STEVENS CRNA Feb 05, 2019 14:25
[2019-02-05] MEDS ORDERED: ONDANSETRON 4 MG/2 ML (SDV) Z0FRAN IVP ONE (14:45)
--- NOTE | 2019-02-05 15:12 | OPERATIVE REPORT ---
DATE OF SERVICE: 02/05/2019 PREOPERATIVE DIAGNOSIS: Symptomatic cholelithiasis, right upper quadrant abdominal pain. POSTOPERATIVE DIAGNOSIS: Symptomatic cholelithiasis, right upper quadrant abdominal pain. PROCEDURE: Laparoscopic cholecystectomy with intraoperative cholangiogram. SURGEON: Chelita Madrid DO. LABEL SEWER: Dr. Stout, who assisted in retraction, dissection and closure. ANESTHESIA: General. ESTIMATED BLOOD LOSS: Minimal. COMPLICATIONS: None. INDICATIONS: The patient is a 38-year-old female with a workup and the symptoms consistent with symptomatic cholelithiasis. She understands the risks and benefits of the procedure and wished to proceed with procedure. Consent was signed in the chart. PROCEDURE: The patient was taken to the operating suite. She was prepped and draped in a sterile fashion. Surgical pause was performed. An incision made just above the umbilicus. Dissection was taken down to the fascia, which was then scored, grasped and elevated. The abdomen was then entered. A 0 Vicryl was placed in a [id number] fashion for closure at the end of the case. A balloon trocar was inserted in the abdomen. Pneumoperitoneum was achieved. Under direct visualization of the laparoscope, a 5 mm trocar was then placed in the subxiphoid region and two 5 mm trocars were placed in the right upper quadrant. Gallbladder was grasped and had multiple adhesions , which were bluntly and cautery taken down. Once the adhesions were taken down, the cystic duct and cystic artery were then dissected out. Clips were placed on the proximal and distal portion of the cystic artery and distal portion of the cystic duct. The duct was then partially transected. Arrow catheter was inserted and cholangiogram was performed. There were no filling defects. Contrast made its way into the duodenum without difficulty. The catheter was removed. Clips were placed in the proximal portion of the cystic duct and the duct was then transected along with the artery. Hook cautery was used to dissect the gallbladder from the gallbladder fossa achieving hemostasis. Once removed, it was placed in an Endobag and removed through the 12 mm trocar site. The abdomen was then irrigated with copious amounts of irrigation and suctioned. Hemostasis had been achieved. The trocars were removed. The 0 Vicryl was placed at the beginning of the case was then used to close the fascial defect. The skin was then closed using a 4-0 Monocryl in a subcuticular fashion. The abdomen was then washed and dried and Skin Affix was placed over the incisions. The patient tolerated the procedure well without any complications. She was taken to the recovery room in stable condition. RECOMMENDATIONS: The patient will follow up in the office in 2 weeks. Discharge instructions provided. Any issues before, will be seen at that time. Job ID: [id number] DocumentID: [id number] Dictated Date: 02/05/2019 10:38:41 Road Grader Operator Date: 02/05/2019 15:11:39 Dictated By: CHELITA MADRID DO
--- NOTE | 2019-02-05 15:20 | NUR ---
PT SITTING UP IN BED, EATING ICE CREAM AND REJI CRACKER, AND REQUESTING PAIN PILL. PT BECAME SUDDENLY TACHYCARDIC HR REGULAR 120-135 BPM, AND PT REPORTS THAT SHE FEELS LIKE SHE IS GOING TO PASS OUT. PT'S HOB LOWERED TO LESS THAN 30 DEGREE'S, IVF OPENED WIDE AT THIS TIME, AND PLACED ON BEDSIDE TELEMETRY. Nelida BACK CRNA NOTIFIED OF PT'S STATUS AND OVER TO EVALUATE PT. TELEMETRY READING NOTED TO BE SINUS TACHYCARDIA AT 120 BPM. PT REPORTS THAT CURRENT PAIN IN 06/12 TO ABDOMEN, DENIES NAUSEA, CHEST PAIN, OR SOB AT THIS TIME. Nelida BACK CRNA TO PT BEDSIDE TO EVALUATE PT, NEW ORDER RECEIVED FOR IV FENTANYL. SEE EMAR FOR DETAILS. Addendum: 02/05/19 at 1622 by DAVIN REID RN ERROR IN TIME, TIME WAS 1320
--- NOTE | 2019-02-05 15:30 | NUR ---
PT SITTING UP IN BED, REQUESTING DISCHARGE HOME, MISAEL KING OUT TO REEVALUATE PATIENT AND DR. CHICAS NOTIFIED OF PT'S STATUS, CURRENT HR 100, PT DENIES ANY C/O OF DISTRESS, CHEST PAIN, HR REGULAR, VSS. OK TO DISCHARGE PT TO HOME.
--- NOTE | 2019-02-05 16:36 | Diagnostic Imaging Report ---
INDICATION: Fluoroscopy during intraoperative cholangiogram. FINDINGS: Fluoroscopy was provided for Dr. Madrid during intraoperative cholangiogram. 21 seconds of fluoroscopy was utilized. IMPRESSION: Fluoroscopy during intraoperative cholangiogram. Dictated on workstation # [id number]
[2019-02-06] MEDS ORDERED: ONDA8TAB6 PO (01:42)
[2019-02-06] MEDS ORDERED: HYOS0.1283 SL (01:42)
== END 2019-02-05 15:40 | disposition home or self-care (01) ==
LOC: SDC 07:08
PROVIDERS: ATTEND Surgery
DX: K80.10 Calculus of gallbladder with chronic cholecystitis without obstruction (principal); K21.9 Gastro-esophageal reflux disease without esophagitis; F32.9 Major depressive disorder, single episode, unspecified; F41.9 Anxiety disorder, unspecified; F17.210 Nicotine dependence, cigarettes, uncomplicated; Z79.899 Other long term (current) drug therapy
CPT/HCPCS: 36415; 85025; 87081; 94664

== ENCOUNTER 2019-02-05 23:26 | Emergency (ER) | payer SELFPAY ==
[~2019-02-05] VITALS: Ht 152.4 cm; Wt 64.4 kg
[~2019-02-05 23:26] MED LIST changes: +ACHD5005 PO; +DOCU-143 PO
[2019-02-06] MEDS ORDERED: ONDANSETRON 4 MG/2 ML (SDV) Z0FRAN IVP ONE
[2019-02-06] MEDS ORDERED: HYOSCYAMINE 0.125 MG (LEVSIN) TAB SL ONE
[2019-02-06] MEDS ORDERED: LACTATED RINGERS 1,000 ML IV ONE
[2019-02-06 00:03] LABS: BASOPHILS % (AUTO) 0 % (0-10); EOSINOPHILS % (AUTO) 0 % (0-10); HEMATOCRIT 30 % (35-52); LYMPHOCYTES # (AUTO) 1.6 X 10^3 (1.0-4.0); LYMPHOCYTES % (AUTO) 9 % (12-44); MEAN CORPUSCULAR HGB CONC 34 G/DL (32-36); MEAN CORPUSCULAR VOLUME 96 FL (80-99); MONOCYTES # (AUTO) 0.7 X 10^3 (0.0-1.0); MONOCYTES % (AUTO) 4 % (0-12); NEUTROPHILS # (AUTO) 15.9 X 10^3 (1.8-7.8); NEUTROPHILS % (AUTO) 87 % (42-75); PLATELET COUNT 308 10^3/uL (130-400); RED CELL DISTRIBUTION WIDTH 12.6 % (10.0-14.5); WHITE BLOOD COUNT 18.2 10^3/uL (4.3-11.0)
[2019-02-06 00:10] LABS: MEAN CORPUSCULAR HEMOGLOBIN 32 PG (25-34)
[2019-02-06 00:20] LABS: ALANINE AMINOTRANSFERASE 31 U/L (0-55); ALBUMIN 3.9 GM/DL (3.2-4.5); ALKALINE PHOSPHATASE 63 U/L (40-136); AMYLASE 35 U/L (25-125); BILIRUBIN,TOTAL 0.4 MG/DL (0.1-1.0); BUN/CREATININE RATIO 13; CARBON DIOXIDE 21 MMOL/L (21-32); CHLORIDE 106 MMOL/L (98-107); CREATININE SERUM 0.84 MG/DL (0.60-1.30); GFR ESTIMATED > 60; GLUCOSE 156 MG/DL (70-105); LIPASE 14 U/L (8-78); MAGNESIUM 1.9 MG/DL (1.8-2.4); POTASSIUM 4.4 MMOL/L (3.6-5.0); SODIUM 138 MMOL/L (135-145); TOTAL PROTEIN 6.1 GM/DL (6.4-8.2)
[2019-02-06] MEDS ORDERED: KETOROLAC 30 MG/ML VIAL ONE (00:21)
[2019-02-06 00:23] LABS: BAND NEUTROPHILS 1 %; LYMPHOCYTES % (MANUAL) 11 %; MONOCYTES % (MANUAL) 2 %; NEUTROPHILS % (MANUAL) 86 %; RBC MORPH NORMAL
[2019-02-06] MEDS ORDERED: KETOROLAC 30 MG/ML VIAL IVP ONE (00:30)
[2019-02-06] MEDS ORDERED: LACTATED RINGERS 1,000 ML IV SCH (00:30)
[2019-02-06 00:44] LABS: BILIRUBIN,URINE NEGATIVE (NEGATIVE); CLARITY,URINE CLEAR; COLOR,URINE YELLOW; GLUCOSE, URINE (UA) NEGATIVE (NEGATIVE); KETONES,URINE NEGATIVE (NEGATIVE); LEUKOCYTE ESTERASE ,URINE NEGATIVE (NEGATIVE); NITRITE,URINE NEGATIVE (NEGATIVE); PH,URINE 6 (5-9); PROTEIN,URINE NEGATIVE (NEGATIVE); UROBILINOGEN,URINE NORMAL (NORMAL)
[2019-02-06 00:54] LABS: AMPHETAMINE SCREEN, URINE NEGATIVE (NEGATIVE); BARBITURATE SCREEN URINE NEGATIVE (NEGATIVE); BENZODIAZEPINES SCREEN URINE NEGATIVE (NEGATIVE); CANNABINOID SCREEN, URINE NEGATIVE (NEGATIVE); COCAINE SCREEN URINE NEGATIVE (NEGATIVE); METHADONE STAT NEGATIVE (NEGATIVE); METHAMPHETAMINE SCREEN URINE S NEGATIVE (NEGATIVE); OPIATE SCREEN URINE POSITIVE (NEGATIVE); OXYCODONE STAT NEGATIVE (NEGATIVE); PROPOXYPHENE STAT NEGATIVE (NEGATIVE); TRICYCLIC ANTIDEPRESSANTS SCRE NEGATIVE (NEGATIVE)
[2019-02-06 00:55] LABS: BACTERIA,URINE NEGATIVE /HPF; SQUAMOUS EPITHELIAL CELL,UR 0-2 /HPF
[2019-02-06] MEDS ORDERED: HYDROcodone/APAP 10 MG/325 MG (LORTAB) TAB PO ONE (01:30)
[2019-02-06] MEDS ORDERED: fentaNYL INJECTION 100 MCG/2 ML AMP IVP ONE (01:30)
[2019-02-06] MEDS ORDERED: RX-HYOSCYAMINE 0.125 MG SL (LEVSIN) PPK#6 SL STA (01:38)
[2019-02-06] MEDS ORDERED: RX-ONDANSETRON 4 MG ODT (ZOFRAN) PPK #4 PO STA (01:38)
[2019-02-06] MEDS ORDERED: RX-ONDANSETRON 4 MG ODT (ZOFRAN) PPK #4 ONE (01:38)
[2019-02-06] MEDS ORDERED: ONDA8TAB6 PO (01:42)
[2019-02-06] MEDS ORDERED: HYOS0.1283 SL (01:42)
--- NOTE | 2019-02-06 01:43 | ED Abdominal Pain ---
General Chief Complaint: Abdominal/GI Problems Stated Complaint: SEVERE PAIN IN STOMACH Nursing Triage Note: PT TO ROOM #7 VIA ED W/C BY SPOUSE WITH C/O DIFFUSE ABD PAIN, BILAT SHOULDER PAIN, SOB, AND N/V. PT REPORTS ON THIS DAY, DR. MADRIGAL PREFORMED A LARRY. REPORTS PAIN WHILE TAKING A DEEP BREATH. REPORTS >10 EPISODES OF EMESIS THROUGHOUT THIS DAY. REPORTS TO BECOME LIGHT HEADED AND DIZZY UPON STANDING. DENIES PASSING GAS OR BM SINCE PROCEDURE. Sepsis Screen: No Definite Risk Source of Information: Patient History of Present Illness Date Seen by Provider: Feb 05, 2019 Time Seen by Provider: 23:49 Initial Comments PT ARRIVES VIA POV WITH PT HAD LAP CHOLECYSTECTOMY TODAY BY DR. KIRK, STATES SHE WAS RELEASED AROUND 1600 TODAY STATES SHE WAS ABLE TO EAT AND DRINK PRIOR TO DISMISSAL PT STATES SINCE SHE GOT HOME, SHE HAS HAD SEVERE PAIN OF ENTIRE ABDOMEN--WORSE IN UPPER ABDOMEN ALSO HAVING PAIN IN BILATERAL SHOULDERS SHE STATES SHE HAS ALSO HAS NAUSEA AND VOMITED > 10 TIMES, STATES SHE DID HAVE WATER AND SOME CRACKERS SINCE SHE GOT HOME FROM HOSPITAL STATES SHE IS NOT PASSING GAS AND HAS NOT HAD A BM STATES SHE HAS HAD DIFFICULTY URINATING--HAS URGE, BUT TAKES A VERY LONG TIME TO VOID AND SHE HAS TO STRAIN TO URINATE STATES SHE HAS BEEN LIGHTHEADED ON STANDING PT HAS TAKEN 3 HYDROCODONE SINCE SHE HAS BEEN HOME, WITHOUT RELIEF PT HAS HAD PRIOR SURGERIES AND STATES SHE HAS HAD THESE SAME PROBLEMS AFTER PREVIOUS SURGERIES. LATER STATES THAT SHE HAS "ZERO" PAIN TOLERANCE PCP: [facility] [place] SURGEON: DR. KIRK Allergies and Home Medications Allergies Coded Allergies: fentanyl (Verified Allergy, Unknown, 02/06/19) "JERKY" Home Medications Docusate Sodium 100 Mg Capsule, 100 MG PO DAILY Prescribed by: CHELITA KIRK on 02/05/19 1027 Hydrocodone Bit/Acetaminophen 1 Tab Tab, 1-2 TAB PO Q6H PRN for PAIN-MODERATE Prescribed by: CHELITA KIRK on 02/05/19 1027 Hyoscyamine Sulfate 0.125 Mg Tab.subl, 1-2 TAB SL Q4H Prescribed by: BEBA SHAHID on 02/06/19 0142 Ondansetron HCl 8 Mg Tablet, 8 MG PO Q6H Prescribed by: BEBA SHAHID on 02/06/19 0142 Sertraline HCl 50 Mg Tablet, 50 MG PO DAILY, (Reported) Zolpidem Tartrate 5 Mg Tablet, 5 MG PO HS, (Reported) Patient Home Medication List Home Medication List Reviewed: Yes Review of Systems Review of Systems Constitutional: dizziness; No fever Respiratory: Shortness of Air (DUE TO PAIN ) Cardiovascular: Denies Chest Pain, Denies Edema Gastrointestinal: See HPI, Abdominal Pain; Denies Constipated, Denies Diarrhea ; Nausea, Poor Fluid Intake, Vomiting Genitourinary: See HPI Musculoskeletal: see HPI Skin: no symptoms reported Psychiatric/Neurological: Anxiety Endocrine: No Symptoms Reported Hematologic/Lymphatic: No Symptoms Reported Past Tljhbwk-Iyvcls-Oumhva Hx Patient Social History Alcohol Use: Denies Use Recreational Drug Use: No Smoking Status: Current Everyday Smoker Type Used: Cigarettes 2nd Hand Smoke Exposure: Yes Recent Foreign Travel: No Contact w/Someone Who Travel: No Recent Infectious Disease Expo: No Recent Hopitalizations: No Immunizations Up To Date Date of Influenza Vaccine: Nov 19, 2012 Seasonal Allergies Seasonal Allergies: No Past Medical History Surgeries: Yes (D&C; HYST/OVARIES INTACT) Gallbladder, Hysterectomy, Tubal Ligation Respiratory: No Cardiac: No Neurological: No Reproductive Disorders: Yes (CERVICAL DYSPLASIA) 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 0.0oz. 64.752598hf; 22.1 BMI Method:Stated General Appearance: WD/WN, other (EXTREMELY DRAMATIC, WAILING, SCREAMING, THRASHING ALL OVER, CONSTANT MOVEMENTS) HEENT: PERRL/EOMI Respiratory: normal breath sounds, no respiratory distress, no accessory muscle use Cardiovascular: regular rate, rhythm, no murmur Gastrointestinal: soft, no organomegaly, no pulsatile mass, abnormal bowel sounds (DECREASED); No distended; tenderness (DIFFUSE TENDERNESS--EXAGGERATED PAIN RESPONSE ); No hernia; other (INCISIONS CLEAN/DRY/INTACT) Extremities: normal inspection, no pedal edema Back: normal inspection, no CVA tenderness 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, no motor/sensory deficits, alert, oriented x 3, other (BEHAVIOR ABOVE) Skin: normal color, warm/dry Progress/Results/Core Measures Results/Orders Lab Results Laboratory Tests Test 02/05/19 23:50 02/06/19 00:30 Range/Units White Blood Count 18.2 H 4.3-11.0 10^3/uL Red Blood Count 3.08 L 4.35-5.85 10^6/uL Hemoglobin 10.0 #L 11.5-16.0 G/DL Hematocrit 30 L 35-52 % Mean Corpuscular Volume 96 80-99 FL Mean Corpuscular Hemoglobin 32 25-34 PG Mean Corpuscular Hemoglobin Concent 34 32-36 G/DL Red Cell Distribution Width 12.6 10.0-14.5 % Platelet Count 308 130-400 10^3/uL Mean Platelet Volume 11.0 H 7.4-10.4 FL Neutrophils (%) (Auto) 87 H 42-75 % Lymphocytes (%) (Auto) 9 L 12-44 % Monocytes (%) (Auto) 4 0-12 % Eosinophils (%) (Auto) 0 0-10 % Basophils (%) (Auto) 0 0-10 % Neutrophils # (Auto) 15.9 H 1.8-7.8 X 10^3 Lymphocytes # (Auto) 1.6 1.0-4.0 X 10^3 Monocytes # (Auto) 0.7 0.0-1.0 X 10^3 Eosinophils # (Auto) 0.0 0.0-0.3 10^3/uL Basophils # (Auto) 0.0 0.0-0.1 10^3/uL Neutrophils % (Manual) 86 % Lymphocytes % (Manual) 11 % Monocytes % (Manual) 2 % Band Neutrophils 1 % Blood Morphology Comment NORMAL Sodium Level 138 135-145 MMOL/L Potassium Level 4.4 3.6-5.0 MMOL/L Chloride Level 106 98-107 MMOL/L Carbon Dioxide Level 21 21-32 MMOL/L Anion Gap 11 5-14 MMOL/L Blood Urea Nitrogen 11 7-18 MG/DL Creatinine 0.84 0.60-1.30 MG/DL Estimat Glomerular Filtration Rate > 60 BUN/Creatinine Ratio 13 Glucose Level 156 H 70-105 MG/DL Calcium Level 9.0 8.5-10.1 MG/DL Corrected Calcium 9.1 8.5-10.1 MG/DL Magnesium Level 1.9 1.8-2.4 MG/DL Total Bilirubin 0.4 0.1-1.0 MG/DL Aspartate Amino Transf (AST/SGOT) 19 5-34 U/L Alanine Aminotransferase (ALT/SGPT) 31 0-55 U/L Alkaline Phosphatase 63 40-136 U/L Total Protein 6.1 L 6.4-8.2 GM/DL Albumin 3.9 3.2-4.5 GM/DL Amylase Level 35 25-125 U/L Lipase 14 8-78 U/L Urine Color YELLOW Urine Clarity CLEAR Urine pH 6 5-9 Urine Specific [place] 1.010 L 1.016-1.022 Urine Protein NEGATIVE NEGATIVE Urine Glucose (UA) NEGATIVE NEGATIVE Urine Ketones NEGATIVE NEGATIVE Urine Nitrite NEGATIVE NEGATIVE Urine Bilirubin NEGATIVE NEGATIVE Urine Urobilinogen NORMAL NORMAL MG/DL Urine Leukocyte Esterase NEGATIVE NEGATIVE Urine RBC (Auto) NEGATIVE NEGATIVE Urine RBC NONE /HPF Urine WBC NONE /HPF Urine Squamous Epithelial Cells 0-2 /HPF Urine Crystals NONE /LPF Urine Bacteria NEGATIVE /HPF Urine Casts NONE /LPF Urine Mucus NEGATIVE /LPF Urine Culture Indicated NO Urine Opiates Screen POSITIVE H NEGATIVE Urine Oxycodone Screen NEGATIVE NEGATIVE Urine Methadone Screen NEGATIVE NEGATIVE Urine Propoxyphene Screen NEGATIVE NEGATIVE Urine Barbiturates Screen NEGATIVE NEGATIVE Ur Tricyclic Antidepressants Screen NEGATIVE NEGATIVE Urine Phencyclidine Screen NEGATIVE NEGATIVE Urine Amphetamines Screen NEGATIVE NEGATIVE Urine Methamphetamines Screen NEGATIVE NEGATIVE Urine Benzodiazepines Screen NEGATIVE NEGATIVE Urine Cocaine Screen NEGATIVE NEGATIVE Urine Cannabinoids Screen NEGATIVE NEGATIVE My Orders Orders - ZEHRA,BEBA K DO Abdomen, Flat & Upright/Decub (02/05/19 23:49) Amylase (02/05/19 23:49) Cbc With Automated Diff (02/05/19 23:49) Comprehensive Metabolic Panel (02/05/19 23:49) Lipase (02/05/19 23:49) Magnesium (02/05/19 23:49) Ua Culture If Indicated (02/05/19 23:49) Ondansetron Injection (Zofran Injectio (02/06/19 00:00) Lactated Ringers (Lr 1000 Ml Iv Solution (02/06/19 00:00) Hyoscyamine Sl Tablet (Levsin Sl Tablet) (02/06/19 00:00) Saline Lock/Iv-Start (02/05/19 23:49) Straight Cath For Spec.-Adult (02/06/19 00:01) Manual Differential (02/05/19 23:50) Ketorolac Injection (Toradol Injection) (02/06/19 00:30) Drug Screen Stat (Urine) (02/06/19 00:22) Ketorolac Injection (Toradol Injection) (02/06/19 00:21) Fentanyl Injection (Sublimaze Injection (02/06/19 01:30) Hydrocodone/Apap 10/325 Tablet (Lortab 1 (02/06/19 01:30) Rx-Ondansetron Po (Rx-Zofran Po) (02/06/19 01:38) Rx-Hyoscyamine Tab (Rx-Levsin Sl) (02/06/19 01:38) Rx-Ondansetron Po (Rx-Zofran Po) (02/06/19 01:38) Lactated Ringers (Lr 1000 Ml Iv Solution (02/06/19 00:30) Medications Given in ED Current Medications Medications Dose Ordered Sig/Jace Route Start Time Stop Time Status Last Admin Dose Admin Acetaminophen/ Hydrocodone Bitart 1 ea ONCE ONCE PO 02/06/19 01:30 02/06/19 01:31 DC 02/06/19 01:31 1 EA Hyoscyamine Sulfate 0.25 mg ONCE ONCE SL 02/06/19 00:00 02/06/19 00:01 DC 02/06/19 00:12 0.25 MG Lactated Ringer's 1,000 ml @ 0 mls/hr Q0M ONCE IV 02/06/19 00:00 02/06/19 00:01 DC 02/06/19 00:12 0 MLS/HR Ondansetron HCl 8 mg ONCE ONCE IVP 02/06/19 00:00 02/06/19 00:01 DC 02/06/19 00:12 8 MG Vital Signs/I&O 02/05/19 02/06/19 23:40 01:47 Temp 97.4 97.4 Pulse 89 87 Resp 16 16 B/P (MAP) 121/68 (85) 118/64 (82) Pulse Ox 94 97 O2 Delivery Room Air Room Air Blood Pressure Mean: 85 Progress Progress Note : Progress Note GIVEN ZOFRAN AND LEVSIN--NAUSEA RELIEVED AND NO VOMITING DURING ER STAY GIVEN TORADOL. CLAIMS NO RELIEF, BUT PT IS SITTING UPRIGHT IN WHEELCHAIR, IS MUCH CALMER AND ALMOST DROWSY AND IS NOT MOANING OR SCREAMING OR THRASHING AROUND. VERY DEMANDING AND HOSTILE THROUGHOUT ER STAY, AND THREATENING MULTIPLE TIMES "TO LEAVE AND GO TO [facility]" THROUGHOUT ER STAY ORDERED FENTANYL, AND PT AND BOTH AWARE THAT I HAD ORDERED IT, THEN WHEN NURSE STARTED TO GIVE IT, PT NOW SUDDENLY STATES SHE CANNOT TAKE FENTANYL BECAUSE IT MAKES HER SHAKE--WANTS MORPHINE OR DILAUDID PT ADVISED THAT I WOULD GIVE HER HYDROCODONE AND PT AGREES TO THIS PT TOLERATING SIPS OF WATER PT STATES SHE FEELS COMFORTABLE GOING HOME AND ASKS FOR RX FOR ZOFRAN, WHICH WAS GIVEN. IN ADDITION I ADVISED HER THAT I WOULD BE GIVING HER A PRESCRIPTION FOR LEVSIN WELL, AND PT IS RECEPTIVE TO TAKING IT ALSO Diagnostic Imaging Comments ACUTE ABDOMEN XRAYS--NORMAL POSTOP APPEARANCE, WITH VERY SMALL AMOUNT OF FREE AIR NOTED, AND CONTRAST MEDIA IN THE BOWEL. VERY MINIMAL GAS OR STOOL IN COLON WITH NO EVIDENCE OF OBSTRUCTION OR ILEUS. PENDING RADIOLOGIST REVIEW Reviewed: Reviewed by Me Departure Impression Primary Impression: Post-op pain Additional Impression: Post-operative nausea and vomiting Disposition: 01 HOME, SELF-CARE Condition: Improved Departure-Patient Inst. Referrals: [facility] [place] ([place]) Primary Care Physician PAPA REID (Family) Primary Care Physician CHELITA KIRK DO Patient Instructions: Nausea and Vomiting, Adult (DC), Postoperative Pain (DC) , Nausea and Vomiting After Surgery, Managing Pain After Surgery Add. Discharge Instructions: CLEAR LIQUIDS--WATER, BROTH, JELLO, GATORADE SOFT DIET WHEN YOUR NAUSEA IS BETTER TAKE YOUR HOME PAIN MEDICATIONS PRESCRIBED FOLLOW ALL POST OP INSTRUCTIONS FOLLOW UP WITH DR. KIRK ON FRIDAY IF NO BETTER, RETURN TO ER IF WORSE All discharge instructions reviewed with patient and/or family. Voiced understanding. Scripts Hyoscyamine Sulfate (Levsin-Sl) 0.125 Mg Tab.subl 1-2 TAB SL Q4H for Abdominal Pain, #15 TAB Prov: BEBA SHAHID DO 02/06/19 Ondansetron HCl (Zofran) 8 Mg Tablet 8 MG PO Q6H for Nausea/Vomiting, #10 TAB Prov: BEBA SHAHID DO 02/06/19 BEBA SHAHID DO Feb 06, 2019 01:42
[2019-02-06 01:47] VITALS: BP 118/64
--- NOTE | 2019-02-06 08:21 | Diagnostic Imaging Report ---
INDICATION: Abdominal pain. Comparison is made with prior examination from 02/06/2019. FINDINGS: There are patchy infiltrates in the lung bases. Bowel gas pattern is nonspecific. There are surgical clips in the right upper quadrant. There is no free air. There is a small amount of retained contrast in the right colon. IMPRESSION: Nonspecific bowel gas pattern. Patchy infiltrates in the lung bases Dictated by: Dictated on workstation # [id number]
== END 2019-02-06 01:47 | disposition home or self-care (01) ==
LOC: EDUNIT# 23:26 → ER 23:29
DX: G89.18 Other acute postprocedural pain (principal); R10.84 Generalized abdominal pain; T81.89XA Other complications of procedures, not elsewhere classified, initial encounter; R11.2 Nausea with vomiting, unspecified; K21.9 Gastro-esophageal reflux disease without esophagitis; F41.9 Anxiety disorder, unspecified; F32.9 Major depressive disorder, single episode, unspecified; F17.210 Nicotine dependence, cigarettes, uncomplicated; Z90.49 Acquired absence of other specified parts of digestive tract; Z87.19 Personal history of other diseases of the digestive system; Z87.442 Personal history of urinary calculi; Z98.51 Tubal ligation status; Z87.448 Personal history of other diseases of urinary system; Z88.8 Allergy status to other drugs, medicaments and biological substances; Z90.710 Acquired absence of both cervix and uterus
CPT/HCPCS: 36415; 51701; 74019; 80053; 80306; 81000; 82150; 83690; 83735; 85007; 85027

== ENCOUNTER → 2020-08-29 | Outpatient (CLI) | payer SELFPAY ==
[~2020-08-29] MED LIST changes: +HYOS0.1283 SL; +ONDA8TAB6 PO
--- NOTE | 2020-08-29 13:46 | Diagnostic Imaging Report ---
PROCEDURE: CT urinary tract, rule out kidney stone. TECHNIQUE: Multiple contiguous axial images were obtained through the abdomen and pelvis without the use of intravenous contrast. Auto Exposure Controls were utilized during the CT exam to meet ALARA standards for radiation dose reduction. INDICATION: Gross hematuria and vomiting. Correlation is made with prior CT from 01/21/2019. The lung bases are clear. The liver contains a 15 mm circumscribed low density inferior right lobe, suggestive of a cyst. The gallbladder is surgically absent. There is no biliary ductal dilatation. Pancreas and spleen are unremarkable. No adrenal mass is detected. Right kidney is unremarkable. There is probable punctate nonobstructing calculus in the lower pole of the left kidney. There does appear to be a calculus located in the mid left ureter near the level of the iliac crest measuring 3 mm in size. No significant hydronephrosis is seen. The remainder of the left ureter is unremarkable. The bladder is decompressed. Right-sided urinary tracts are unremarkable. Bowel loops are normal caliber. The aorta is non-aneurysmal. There is no free fluid. IMPRESSION: 3 mm mid left ureteric calculus without evidence of hydroureteronephrosis. There is also a punctate nonobstructing left renal calculus. No other significant abnormality is detected. Dictated by: Dictated on workstation # [id number]
== END ==
LOC: RAD 12:55
PROVIDERS: ATTEND Nurse Practitioner Family
DX: N20.2 Calculus of kidney with calculus of ureter (principal); F17.210 Nicotine dependence, cigarettes, uncomplicated
CPT/HCPCS: 74176

== ENCOUNTER → 2020-09-18 | Outpatient (CLI) | payer SELFPAY ==
[~2020-09-18] MED LIST changes: +NITR-65 PO; +PHEN-640 PO; +TMSL.4C PO
--- NOTE | 2020-09-18 15:22 | Diagnostic Imaging Report ---
INDICATION: Left nephrolithiasis. EXAMINATION: KUB at 2:36 PM. FINDINGS: There are several phleboliths in the pelvis. There are no definite calculi seen in either kidney or in the ureteral distributions. The bowel gas pattern is normal. IMPRESSION: Unremarkable KUB. Dictated by: Dictated on workstation # [id number]
== END ==
LOC: RAD 14:23
PROVIDERS: ATTEND Urology
DX: N20.2 Calculus of kidney with calculus of ureter (principal)
CPT/HCPCS: 74018

== ENCOUNTER 2020-09-19 07:08 | Day surgery (SDC) | payer BC ==
[2020-09-19] VITALS (9 sets, daily range): BP systolic 92–111; BP diastolic 56–69
[~2020-09-19 07:08] MED LIST changes: -NITR-65 PO; -PHEN-640 PO; -TMSL.4C PO
[2020-09-19] MEDS ORDERED: CATHETER FLUSH 10 ML SYR IV PRN (07:30)
[2020-09-19] MEDS ORDERED: cefTRIAXone FOR IV USE 1,000 MG in WATER (STERILE) FOR INJECTION 10 ML IV ONE (07:30)
--- NOTE | 2020-09-19 07:46 | Progress Note-Pre Operative ---
Pre-Operative Progress Note H&P Reviewed The H&P was reviewed, patient examined and no changes noted. Date Seen by Provider: Sep 19, 2020 Time Seen by Provider: 07:45 Date H&P Reviewed: Sep 19, 2020 Time H&P Reviewed: 07:45 Pre-Operative Diagnosis: LT DISTAL URETERAL STONE SOFÍA TORRES MD Sep 19, 2020 07:46
--- NOTE | 2020-09-19 07:58 | Diagnostic Imaging Report ---
INDICATION: Left ureteral stone. COMPARISON: CT abdomen and pelvis from 08/29/2020. FINDINGS: Numerous scattered pelvic phleboliths are present. No soft tissue mineralizations that would suggest renal calculi. Normal regional skeleton. Nonobstructive bowel gas pattern. IMPRESSION: No radiographically apparent urinary tract calculi. Dictated by: Dictated on workstation # [id number]
[2020-09-19] MEDS ORDERED: LACTATED RINGERS 1,000 ML IV PRN (07:59)
[2020-09-19] MEDS ORDERED: MIDAZOLAM 2 MG/2 ML (VERSED) VIAL ONE (09:21)
[2020-09-19] MEDS ORDERED: proPOfol 200 MG/20 ML (DIPRIVAN) VIAL IV ONE (09:30)
[2020-09-19] MEDS ORDERED: LIDOCAINE PF 2% 5 ML (XYLOCAINE) VIAL ONE (09:30)
[2020-09-19] MEDS ORDERED: ONDANSETRON 4 MG/2 ML (SDV) Z0FRAN ONE (09:31)
[2020-09-19] MEDS ORDERED: SEVOFLURANE (ULTANE) 15 ML INHAL SOLN ONE (09:31)
--- NOTE | 2020-09-19 09:38 | Progress Note-Post Operative ---
Post-Operative Progess Note Surgeon (s)/Vocational Teacher (s) Surgeon SOFÍA TORRES MD Vocational Teacher: NONE Pre-Operative Diagnosis LT DISTAL URETERAL STONE Post-Operative Diagnosis SAME Procedure & Operative Findings Date of Procedure 09/19/20 Procedure Performed/Findings LT URETEROSCOPY WITH STONE LITHOTRIPSY Anesthesia Type GENERAL Estimated Blood Loss Estimated blood loss (mL): NONE Specimens/Packing Specimens Removed NONE Packing: NONE SOFÍA TORRES MD Sep 19, 2020 09:38
--- NOTE | 2020-09-19 09:39 | Discharge Inst-Urology ---
Discharge Inst-Urology Reconcile Patient Problems Problems Reviewed?: Yes Final Diagnosis LT DISTAL URETERAL STONE Patient Instructions/Follow Up Plan/Assessment/Instructions Please make appointment to been seen in office in 2 weeks. Increase oral fluids for 48 hours and then as needed. Diet and Activity as tolerated. If questions or concerns contact your physician Or seek help at emergency department. SOFÍA TORRES MD Sep 19, 2020 09:39
[2020-09-19] MEDS ORDERED: morphine INJ 10 MG/ML 1ML (SYR OR VIAL) ONE (09:40)
[2020-09-19] MEDS ORDERED: ROCURONIUM 10 MG/ML 5 ML SYRINGE IV ONE (10:17)
[2020-09-19] MEDS ORDERED: PHENYLEPHRINE 100 MCG/ML 10 ML (ANESTHESIA) SYR ONE (10:22)
--- NOTE | 2020-09-19 10:34 | Anesthesia-General Post-Op ---
General Patient Condition Mental Status/LOC: Same as Preop Cardiovascular: Satisfactory Nausea/Vomiting: Absent Respiratory: Satisfactory Pain: Controlled Complications: Absent Post Op Complications Complications None Follow Up Care/Instructions Patient Instructions None needed. Anesthesia/Patient Condition Patient Condition Patient is doing well, no complaints, stable vital signs, no apparent adverse anesthesia problems. No complications reported per nursing. JANICE PRAKASH CRNA Sep 19, 2020 10:34
[2020-09-19] MEDS ORDERED: ONDANSETRON 4 MG/2 ML (SDV) Z0FRAN IVP PRN (10:45)
[2020-09-19] MEDS ORDERED: MEPERIDINE (DEMEROL) INJ 50 MG/ML IVP ONE (10:45)
[2020-09-19] MEDS ORDERED: morphine INJ 10 MG/ML 1ML (SYR OR VIAL) IVP ONE (10:45)
[2020-09-19] MEDS ORDERED: PHEN-640 PO (11:42)
[2020-09-19] MEDS ORDERED: NITR-65 PO (11:42)
[2020-09-19] MEDS ORDERED: TMSL.4C PO (11:42)
--- NOTE | 2020-09-19 13:15 | OPERATIVE REPORT ---
DATE OF SERVICE: 09/19/2020 PREOPERATIVE DIAGNOSIS: Left distal ureteral stone. POSTOPERATIVE DIAGNOSIS: Left distal ureteral stone. OPERATIONS PERFORMED: Left ureteroscopy with stone lithotripsy. SURGEON: Wilmer Torres MD. ANESTHESIA: General. COMPLICATIONS: None. DESCRIPTION OF PROCEDURE: Under satisfactory general anesthesia and the patient in a lithotomy position, the genitalia were prepped and draped in the usual sterile fashion. Cystoscope was introduced into the bladder, visualized the stone protruding through the left ureterovesical junction. I removed the cystoscope and introduced the ureteroscope, a 6.9 Prydeinig semi-rigid. I was able to disimpact the stone and then broke it up completely. I went up. I had to gabriela one fragment and broke it up and then the kidney back in the ureter. There were no further fragments and no stones. I removed the ureteroscope and reinserted the cystoscope to empty the bladder. The patient tolerated the procedure and anesthesia well and was sent to the recovery room in a stable condition. Job ID: [id number] DocumentID: [id number] Dictated Date: 09/19/2020 10:38:51 Unix Systems Administrator Date: 09/19/2020 13:15:45 Dictated By: WILMER TORRES MD
== END 2020-09-19 12:15 | disposition home or self-care (01) ==
LOC: SDC 07:08
PROVIDERS: ATTEND Urology
DX: N20.1 Calculus of ureter (principal); Z79.899 Other long term (current) drug therapy; Z20.828 Contact with and (suspected) exposure to other viral communicable diseases; Z11.2 Encounter for screening for other bacterial diseases
CPT/HCPCS: 52353; 74018; 76000; 87081; U0002; 87635